=== PATIENT | male | born 1960 | race Caucasian/White ===

== ENCOUNTER 2019-04-06 06:09 | Day surgery (SDC) | payer OTHER ==
[2019-04-06] MEDS ORDERED: MIDAZOLAM 1 MG/ML 2 ML INJ ×2 (09:04)
[2019-04-06] MEDS ORDERED: FENTAnyl 50 MCG/ML VIAL (09:04)
== END 2019-04-06 09:24 | disposition home or self-care (01) ==
LOC: GIL 06:09
DX: Z12.11 Encounter for screening for malignant neoplasm of colon (principal); K64.8 Other hemorrhoids
CPT/HCPCS: 45378